=== PATIENT | female | born 1950 | race Caucasian/White ===

== ENCOUNTER → 2016-03-15 | Outpatient (REF) | payer MEDICARE ==
[2016-03-15 18:38] LABS: ALBUMIN 4.1 GM/DL (3.2-5.2); ALBUMIN/GLOBULIN RATIO 1.32 (1.00-1.93); ALKALINE PHOSPHATASE 102 U/L (45-117); ALT/SGPT 26 U/L (12-78); ANION GAP 8 MEQ/L (8-16); AST/SGOT 21 U/L (15-37); BILIRUBIN,TOTAL 0.6 MG/DL (0.2-1.0); BLOOD UREA NITROGEN 13 MG/DL (7-18); CALCIUM LEVEL 8.9 MG/DL (8.8-10.2); CARBON DIOXIDE LEVEL 29 MEQ/L (21-32); CHLORIDE LEVEL 105 MEQ/L (98-107); CHOLESTEROL LEVEL 279 MG/DL (<200); CREATININE FOR GFR 0.85 MG/DL (0.55-1.02); GLOMERULAR FILTRATION RATE > 60.0 (>45); GLUCOSE, FASTING 96 MG/DL (80-110); POTASSIUM SERUM 4.7 MEQ/L (3.5-5.1); SODIUM LEVEL 142 MEQ/L (136-145); TOTAL PROTEIN 7.2 GM/DL (6.4-8.2); TRIGLYCERIDES LEVEL 231 MG/DL (<150)
[2016-03-15 18:59] LABS: BASO % 0.6 % (0.0-1.0); EOS # 0.2 K/mm3 (0.0-0.50); EOS % 3.2 % (0.0-3.0); LARGE UNSTAINED CELL # 0.1 K/mm3 (0.0-0.4); LYMPH # 2.1 K/mm3 (1.5-4.5); LYMPH % 35.4 % (24.0-44.0); MEAN CORPUSCULAR HEMOGLOBIN 29.9 pg (27.0-33.0); MEAN CORPUSCULAR HGB CONC 32.1 g/dl (32.0-36.5); MEAN CORPUSCULAR VOLUME 93.3 fl (80.0-96.0); MONO # 0.3 K/mm3 (0.0-0.8); MONO % 5.9 % (0.0-5.0); NEUTROPHILS # 3.1 K/mm3 (1.8-7.7); PLATELET COUNT, AUTOMATED 294 k/mm3 (150-450); RED CELL DISTRIBUTION WIDTH 13.6 % (11.5-14.5); WHITE BLOOD COUNT 5.8 K/mm3 (4.0-10.0)
== END ==
LOC: M LAB REF 16:16
PROVIDERS: ATTEND Family Medicine
DX: Z00.00 Encounter for general adult medical examination without abnormal findings (principal); I10 Essential (primary) hypertension; M25.569 Pain in unspecified knee

== ENCOUNTER → 2016-04-14 | Outpatient (CLI) | payer MEDICARE ==
[~2016-04-14] MED LIST: AMLO5TAB2 PO; ASPI81TA4 PO; BENA25CA4 PO; BENA40TA2 PO; COUM1TAB17 PO; DICL100T PO; FISH5CAP PO; IBUP-1114 PO; METO25TA74 PO
[2016-04-14 13:13] LABS: ALBUMIN/GLOBULIN RATIO 1.18 (1.00-1.93); ALKALINE PHOSPHATASE 115 U/L (45-117); ALT/SGPT 30 U/L (12-78); ANION GAP 9 MEQ/L (8-16); AST/SGOT 22 U/L (15-37); BILIRUBIN,TOTAL 0.4 MG/DL (0.2-1.0); BLOOD UREA NITROGEN 13 MG/DL (7-18); CALCIUM LEVEL 9.2 MG/DL (8.8-10.2); CARBON DIOXIDE LEVEL 26 MEQ/L (21-32); CHLORIDE LEVEL 104 MEQ/L (98-107); CREATININE FOR GFR 0.78 MG/DL (0.55-1.02); GLOMERULAR FILTRATION RATE > 60.0 (>45); GLUCOSE, FASTING 96 MG/DL (80-110); POTASSIUM SERUM 4.1 MEQ/L (3.5-5.1); SODIUM LEVEL 139 MEQ/L (136-145); TOTAL PROTEIN 7.4 GM/DL (6.4-8.2)
[2016-04-14 13:14] LABS: MEAN CORPUSCULAR HGB CONC 33.9 g/dl (32.0-36.5); MEAN CORPUSCULAR VOLUME 91.5 fl (80.0-96.0); RED CELL DISTRIBUTION WIDTH 13.5 % (11.5-14.5); WHITE BLOOD COUNT 6.4 K/mm3 (4.0-10.0)
== END ==
LOC: M ADMPAT 09:51
PROVIDERS: ATTEND Orthopaedic Surgery
DX: Z01.818 Encounter for other preprocedural examination (principal); M13.851 Other specified arthritis, right hip; I10 Essential (primary) hypertension; Z79.899 Other long term (current) drug therapy

== ENCOUNTER 2016-04-26 09:36 | Inpatient (IN) | payer MEDICARE ==
[2016-04-14 11:27] VITALS: BP 145/90
--- NOTE | 2016-04-23 14:05 | HPE ---
DATE OF ADMISSION: 04/26/2016 ATTENDING PHYSICIAN: Flash Cortez MD CHIEF COMPLAINT: Left hip pain. HISTORY: This is a pleasant 66-year-old female patient with progressively worsening right hip pain and stiffness. She has failed to improve with conservative management. She has pain with activities of daily living and weightbearing activities. She has elected for surgery for her continued symptoms. She has consented for a right total hip arthroplasty by Dr. Cortez. X-rays of her left hip are notable for advanced degenerative changes of the left hip with [id number] in the left hip. ALLERGIES: 1. CODEINE. 2. DILAUDID. CURRENT MEDICATIONS: Include: - benazepril 40 mg one tablet once per day - metoprolol 25 mg one tablet once per day - amlodipine/valsartan 5/160 mg one tablet once per day - tramadol as needed for pain - diclofenac 75 mg one tablet once per day - she will discontinue that five days prior to her surgery. She will also discontinue her aspirin five days prior to surgery. MEDICAL HISTORY: Includes: Hypertension. Osteoarthritis of the left hip. PRIOR SURGERIES: Include: Total hip arthroplasty on the right. Tonsils and adenoids removed. Total hysterectomy. Open reduction internal fixation of a right forearm fracture. FAMILY HISTORY: Noncontributory. SOCIAL HISTORY: She does not smoke. She does not use alcohol. She is retired. REVIEW OF SYSTEMS: Denies fever or chills. Denies chest pain, shortness breath or cough. Denies difficulty breathing. Denies abdominal pain. Denies nausea or vomiting. Has persistent pain in her left hip with weightbearing activities and activities of daily living. Denies nausea or vomiting. PHYSICAL EXAM: Physical exam today reveals an alert, well-nourished, well-developed obese female patient. She is brought in in a wheelchair. There is irritability on hip range of motion on the left side. The skin is intact. No erythema, edema or ecchymosis. It is a well perfused left lower extremity. Her neck is supple without adenopathy or JVD. Lungs are clear to auscultation without rales or wheeze. Heart regular rate and rhythm. Abdomen bowel sounds are present. Vital signs: Temperature is 98.4, respirations 20, pulse 76, blood pressure 122/70, height 5 feet 5 inches. Weight 243 pounds. IMPRESSION: Symptomatic osteoarthritis of the left hip. LABORATORY DATA: Glucose 96, BUN 13, creatinine 0.78, sodium 139, potassium 4.1, INR 1.0, ProTime 13.3, sed rate of 17. WBC count of 6.4, RBC count of 4.4, hemoglobin 13.9, hematocrit 40.9. Nasal cultures positive for Moraxella Catarrhalis. She was treated per the protocol. UA within normal limits. Urine culture no growth. PLAN: She has consented for a left total hip arthroplasty by Dr. Cortez.
[~2016-04-26] VITALS: Ht 165.1 cm; Wt 110.0 kg
[~2016-04-26 09:36] MED LIST changes: -COUM1TAB17 PO
[2016-04-26] MEDS ORDERED: LR 1,000 ML IV SCH ×3 (10:00→14:30)
[2016-04-26] MEDS ORDERED: PROPOFOL 200 MG/20 ML VIAL As Ordered ONE ×2 (10:27→12:54)
[2016-04-26] MEDS ORDERED: MIDAZOLAM INJ 2 MG/2 ML VIAL (J2250) As Ordered ONE (10:28)
[2016-04-26] MEDS ORDERED: fentaNYL 100 MCG/2 ML INJECTION (J3010) As Ordered ONE ×3 (10:28→14:15)
[2016-04-26] MEDS ORDERED: COUM1TAB17 PO (10:45)
[2016-04-26] MEDS ORDERED: ceFAZolin 1GM INJ (J0690) As Ordered ONE (11:42)
[2016-04-26] MEDS ORDERED: BUPIVACAINE HCL 0.25% 30 ML VIAL As Ordered ONE ×2 (11:42→11:44)
[2016-04-26] MEDS ORDERED: TRANEXAMIC ACID 100 MG/ML 10ML VIAL As Ordered ONE (11:43)
[2016-04-26] MEDS ORDERED: EPINEPHrine INJ 1 MG/ML 1ML VIAL/AMP As Ordered ONE (11:44)
[2016-04-26] MEDS ORDERED: MORPHINE PCA 1MG/ML 100ML CADD As Ordered ONE (14:15)
[2016-04-26] MEDS: fentaNYL 100 MCG/2 ML INJECTION (J3010) IV PRN ×4 (14:18→14:35)
[2016-04-26] MEDS ORDERED: FLEET ENEMA PR PRN (14:30)
[2016-04-26] MEDS ORDERED: ACETAMINOPHEN TAB 650MG DOSE (2X325MG) PO PRN (14:30)
[2016-04-26] MEDS ORDERED: ONDANSETRON 4MG/2ML VIAL (J2405) IV PRN ×2 (14:30→14:45)
[2016-04-26] MEDS ORDERED: METOCLOPRAMIDE INJ 10MG/2ML VIAL (J2765) IV PRN (14:30)
[2016-04-26] MEDS ORDERED: PATIENT IS CURRENTLY ON AN ON-Q PAIN BUSTER PAIN RELIEF SYSTEM XX SCH (14:30)
[2016-04-26] MEDS ORDERED: NALBUPHINE HCL 10 MG/ML AMP (J2300) IV PRN (14:45)
[2016-04-26] MEDS ORDERED: EPIDURAL/PCA KEYS XX PRN (14:45)
[2016-04-26] MEDS ORDERED: MORPHINE PCA 1MG/ML 100ML CADD IV PRN (14:45)
[2016-04-26] MEDS ORDERED: NALOXONE INJ 0.4 MG/1 ML VIAL (J2310) IV PRN (14:45)
[2016-04-26] MEDS ORDERED: diphenhydrAMINE INJ 50MG/ML VIAL (J1200) IV PRN (14:45)
[2016-04-26] MEDS: PERCOCET 5MG/325MG TAB PO PRN ×2 (15:07→15:28)
--- NOTE | 2016-04-26 16:07 | CR.PDOC ---
[facility] Consultation Consultation HOSPITALIST CONSULT NOTE Date of consult: 04/26/2016 Referring Provider: Dr. Cortez Reason for Consult: Management of hypertension HPI: 66-year-old female with hypertension and osteoarthritis who underwent a left total hip arthroscopy today with Dr. Cortez. There are reportedly no complications. We were asked to manage the patient's hypertension. The patient currently is reporting only pain in her hip. She otherwise feels well, and denies any chest pain, shortness of breath, vomiting. Past medical history: Hypertension and osteoarthritis Past surgical history: Bilateral total hip arthroplasties, tonsillectomy and adenoidectomy, total hysterectomy, ORIF of the right forearm Family history: TIAs and Parkinson's Social history: She denies any tobacco or alcohol use Allergies: Codeine and Dilaudid Review of systems: General: Negative for fever and chills Eyes: Negative for vision changes and ocular discharge ENT: Negative for sore throat and nose bleed Cardiovascular: Negative for chest pain and palpitations Respiratory:. Negative for Cough and shortness of breath GI: Negative for nausea, vomiting, diarrhea, constipation Musculoskeletal: Positive for hip pain Skin: Positive for eczema that comes and goes Neuro: Negative for headache, dizziness, numbness, tingling Psych: Negative for depression and suicidal ideation Endocrine: Negative for polyuria : Negative For dysuria Heme: Negative for bruising and bleeding Home meds: See below Physical exam: Vital signs: Vital Sign - Last 24 Hours 04/26/16 04/26/16 04/26/16 04/26/16 10:30 14:05 14:18 14:20 Temp 99.1 96.6 Pulse 83 79 68 Resp 20 16 17 18 B/P 144/82 101/71 136/75 Pulse Ox 96 98 98 96 O2 Delivery Room Air Room Air 04/26/16 04/26/16 04/26/16 04/26/16 14:24 14:29 14:35 14:35 Temp 98.2 Pulse 69 Resp 20 21 20 19 B/P 129/77 Pulse Ox 96 98 95 95 O2 Delivery Room Air Room Air Room Air Room Air 04/26/16 04/26/16 04/26/16 04/26/16 14:50 15:05 15:20 15:35 Temp 98.2 98.5 Pulse 70 73 71 66 Resp 20 21 18 17 B/P 126/75 140/89 115/64 112/66 Pulse Ox 96 97 98 96 O2 Delivery Room Air Room Air Room Air Room Air Gen.: awake, alert, no acute distress Eyes: Extraocular movements intact, normal sclera ENT: Moist mucous membranes, very hard of hearing Cardiovascular: RRR, no murmurs rubs or gallops Lungs: clear to auscultation bilaterally, no rales, rhonchi, or wheeze Abdomen: Soft, NT/ND, normal BS Extremities: Pedal pulses intact Neuro: alert and oriented 3, normal speech, no focal deficits Psych: Normal mood with congruent affect Labs and radiology: None to review Assessment and plan: 66-year-old female with hypertension and osteoarthritis who underwent left total hip arthroplasty today. Dr. Cortez has asked us to see the patient in consultation for management of her hypertension. 1. Hypertension: We will continue the patient's home Norvasc, ARSALAN inhibitor, and metoprolol starting tomorrow morning. The patient's blood pressure is currently well-controlled postoperatively. DVT prophylaxis: As per the primary team Thank you for this consult. Dr. Jeffries will continue to follow along with you. Vital Signs/I&O Vital Signs Date Time Temp Pulse Resp B/P Pulse Ox O2 Delivery O2 Flow Rate FiO2 04/26/16 15:35 98.5 66 17 112/66 96 Room Air Allergies Coded Allergies: Hydromorphone (Unverified Allergy, Severe, hypotension, 04/14/16) Rofecoxib (Unverified Allergy, Intermediate, elevated BUN, 04/14/16) Codeine (Unverified Adverse Reaction, Intermediate, NAUSEA, 04/26/16) Home Medications Scheduled (Aspirin EC Low Dose) 81 Mg Tab 81 MG PO DAILY (Reported) (Fish Oil 1200 mg) 1 Cap Cap 2 CAP PO DAILY (Reported) Amlodipine Besylate (Amlodipine Besylate) 5 Mg Tab 5 MG PO DAILY (Reported) Benazepril HCl (Benazepril HCl) 40 Mg Tab 40 MG PO DAILY (Reported) Diclofenac Sodium (Diclofenac Sodium ER) 100 Mg Tab 75 MG PO BID (Reported) Metoprolol Succinate (Metoprolol Succinate ER) 25 Mg Tab 25 MG PO DAILY ( Reported) Warfarin Sod (Coumadin) 5 Mg Tab 5 MG PO 1T (Reported) Scheduled PRN Diphenhydramine HCl (Benadryl Allergy) 25 Mg Cap 50 MG PO QHSP PRN PRN SLEEP ( Reported) Ibuprofen (Ibuprofen) 400 Mg Tab 800 MG PO PRN PRN PRN PAIN (Reported) CHIKIS BILLINGS Apr 26, 2016 16:07
[2016-04-26] MEDS ORDERED: MORPHINE 10 MG/ML 1ML VIAL As Ordered ONE (16:15)
[2016-04-26] MEDS: MORPHINE 2 MG/ML 1ML SYRINGE IV PRN ×2 (16:17→16:28)
[2016-04-26] MEDS ORDERED: LR 500 ML IV ONE (16:30)
[2016-04-26] MEDS ORDERED: WARFARIN SOD 5 MG TAB PO ONE (17:00)
[2016-04-26 17:30] VITALS: BP 136/81
[2016-04-26] MEDS: ONDANSETRON 4MG/2ML VIAL (J2405) IV PRN (17:40)
[2016-04-26 18:00] VITALS: BP 130/61
[2016-04-26] MEDS: LR 1,000 ML IV SCH (18:45)
[2016-04-26 19:00] VITALS: BP 132/68
[2016-04-26 20:00] VITALS: BP 141/75
[2016-04-26 21:00] VITALS: BP 136/85
--- NOTE | 2016-04-26 21:32 | IPN ---
DATE: 04/26/2016 Patient seen and examined, and she wishes to go ahead with a total hip arthroplasty. She understands the nature of this, the risks of bleeding, infection, damage to nerves, vessels, persistent pain, wear loosening, dislocation, leg length inequality, blood clots, medical problems, among others. She understands that due to the fact that she is morbidly obese with a body mass index (BMI) of greater than 40 that she is at increased risk of complications and the risk can be substantially increased. Preoperative clearance was obtained.
[2016-04-26 22:00] VITALS: BP 140/76
[2016-04-27 02:00] VITALS: BP 144/80
[2016-04-27] MEDS: LR 1,000 ML IV SCH (03:50)
[2016-04-27 06:00] VITALS: BP 133/66
[2016-04-27] MEDS ORDERED: PERCOCET 5MG/325MG TAB PO PRN (06:30)
[2016-04-27] MEDS ORDERED: ONDANSETRON 4 MG TAB (S0181) PO PRN (06:30)
[2016-04-27 07:08] LABS: MEAN CORPUSCULAR HEMOGLOBIN 31.1 pg (27.0-33.0); MEAN CORPUSCULAR HGB CONC 33.9 g/dl (32.0-36.5); MEAN CORPUSCULAR VOLUME 91.9 fl (80.0-96.0); RED CELL DISTRIBUTION WIDTH 13.5 % (11.5-14.5)
[2016-04-27 07:13] LABS: INR 1.14
[2016-04-27] MEDS: ONDANSETRON 4MG/2ML VIAL (J2405) IV PRN (08:47)
[2016-04-27 10:00] VITALS: BP 173/79
[2016-04-27] MEDS: MIRALAX *UNIT DOSE* 17GM PACKET PO SCH (10:20)
[2016-04-27] MEDS: MOM 30ML SUSPENSION UDC PO SCH (10:20)
[2016-04-27] MEDS: SENOKOT S TAB PO SCH ×2 (10:22→20:32)
--- NOTE | 2016-04-27 10:22 | RO ---
DATE OF PROCEDURE: 04/26/2016 PREOPERATIVE DIAGNOSIS: Left hip osteoarthritis, advanced. POSTPROCEDURE DIAGNOSIS: Left hip osteoarthritis, advanced. PROCEDURE: Left total hip arthroplasty using a Ware size 6 stem regular offset, 36 ball, 54 acetabulum, +5 neck. SURGEON: Flash Cortez MD TRESTLE BUILDER: JOSE ANTONIO Cunningham ANESTHESIA: Spinal. ESTIMATED BLOOD LOSS: 400 COMPLICATIONS: None. INDICATION: 66-year-old woman with obesity who has had persistent worsening left hip pain. Has advanced arthritis on x-ray and wished to have a surgical treatment, having failed conservative management that she wished to try. She understood the nature of this, the risks of bleeding, infection, damage to nerves, vessels, persistent pain, wear, loosening, dislocation, leg length inequality, blood clots, medical problems, among others and understood that her risk was higher due to her elevated weight. DESCRIPTION OF PROCEDURE: The patient taken to the operating room and placed in the right lateral decubitus position. After spinal anesthesia was induced, the left hip was prepped and draped in the usual sterile fashion. A time-out was performed. I then created a longitudinal incision over the lateral aspect of the hip and did a little bit more extensile due to her weight and dissected down through significant adipose tissue until the fascia was encountered. This was incised longitudinally with the cautery. I controlled hemostasis with the cautery, but she did seem to be oozing from several areas, which I was able to adequately control with the cautery. I then dissected about the anterior 40% of the abductor off the anterior aspect of the hip and split the labrum and gradually externally rotated the femur and exposed the hip, which was relatively difficult due to her weight. The hip was then dislocated. She has significant arthritis with flattening of the femoral head. We then proceeded to use a canal initiating reamer followed by the intramedullary reamer, followed by the lateralizing reamer and then sequentially reamed up to a size 6, which seemed to have a good bony purchase. The neck was then cut about a fingerbreadth up from the lesser trochanter and the femoral head removed. I then prepared the acetabulum, anterior posterior retractors were placed. I then removed the soft tissue from around the acetabulum and then sequentially reamed up to a size 53, which had good concentric reaming and good bleeding bone. I selected a 54 acetabular component, impacted it in place in the appropriate amount of anteversion and horizontal tilt. Excellent fit was noted. I did hae to remove some osteophytes from the anterior aspect with a rongeur and osteotome. I had irrigated multiple times prior to this. I again irrigated now and then put in a 36 x 54 liner, impacted it in place. I had also put the apex hole eliminator in. We then directed our attention back to the femur. I sequentially broached up to a size 6, which had an excellent fit and fill, placed a 1.5 followed by the five neck and 36 ball combination and did trial reductions. The hip was put through range of motion and seemed to have excellent stability. There was a little bit more shuck with a 1.5 than I was happy with. Soft tissue tension was appropriate with 5 and the flexion and internal rotation was limited only by her pannus. Extension and external rotation was stable as well. There was no instability noted. No impingement noted. I then removed the trial components and put the actual size 6 stem down, impacted it in place. Excellent fit was noted. I dried the An taper and put the +5 36 ball on and impacted this in place and then we reduced the hip. I again put it through range of motion and was very pleased with the stability and position. I irrigated again as I had multiple times and placed the TXA solution. I then repaired the minimus with #1 Vicryl suture, the abductor with #1 Vicryl suture in interrupted fashion. An excellent repair was noted. I irrigated at each level and then closed the fascia kunal with #1 Vicryl suture as a tagging suture in the middle and then used the running Stratafix suture in each direction with the events and promotions assistant helping. I then closed the subcutaneous after irrigation, the skin with abril, inserted the PainBuster catheter in the anterior aspect just anterior to the incision down to the femoral neck and inserted the catheter and secured it to the skin. Sterile dressing was applied. She was taken to recovery room in stable condition. The PainBuster catheter was utilized in the usual fashion. The events and promotions assistant was instrumental in holding retractors and assisting in reducing and dislocating the hip and in closure. This was coded as an unusually difficult procedure because her BMI was created and 40 and this made it technically more challenging to expose and visualize and get the components in appropriately and with wound closure etc. The plan will be routine postop
[2016-04-27] MEDS: METOPROLOL SUCC *XL* 25MG TAB (TopROL *XL*) PO SCH (10:26)
[2016-04-27] MEDS: BENAZEPRIL 20 MG TAB PO SCH (10:26)
[2016-04-27] MEDS: amLODIPine 5 MG TAB PO SCH (10:28)
--- NOTE | 2016-04-27 11:04 | REP ---
LEFT HIP SERIES TWO VIEWS: 04/27/2016. No prior study. Clinical history: Left total hip arthroplasty. AP and two cross-table lateral views were provided. There are skin abril overlying the lateral aspect of the hip soft tissues. There is a left total hip arthroplasty with the two components well-aligned in relationship to each other and the [place] bone. There are no focal bone lesions. There is some minor degenerative changes at the inferior aspect the left SI joint. Impression: 1. Status post left total hip arthroplasty. Prosthetic components well-aligned in relationship to each other and the [place] bone. Signed by Noel Da Silva MD 04/27/2016 05:13 P
--- NOTE | 2016-04-27 13:17 | IPNPDOC ---
Date Seen The patient was seen on 04/27/16. Progress Note Hospitalist Progress Note Subjective: The patient states that she feels nauseated Objective: Physical Exam: Vitals: Vital Sign - Last 24 Hours 04/26/16 04/26/16 04/26/16 04/26/16 14:05 14:18 14:20 14:24 Temp 96.6 Pulse 79 68 Resp 16 17 18 20 B/P 101/71 136/75 Pulse Ox 98 98 96 96 O2 Delivery Room Air Room Air Room Air 04/26/16 04/26/16 04/26/16 04/26/16 14:29 14:35 14:35 14:50 Temp 98.2 Pulse 69 70 Resp 21 20 19 20 B/P 129/77 126/75 Pulse Ox 98 95 95 96 O2 Delivery Room Air Room Air Room Air Room Air 04/26/16 04/26/16 04/26/16 04/26/16 15:05 15:07 15:20 15:28 Temp 98.2 Pulse 73 71 Resp 21 17 18 18 B/P 140/89 115/64 Pulse Ox 97 97 98 95 O2 Delivery Room Air Room Air Room Air Room Air 04/26/16 04/26/16 04/26/16 04/26/16 15:35 15:50 16:05 16:17 Temp 98.5 97.5 Pulse 66 64 64 Resp 17 16 17 16 B/P 112/66 100/57 104/61 Pulse Ox 96 96 95 96 O2 Delivery Room Air Room Air Room Air Room Air 04/26/16 04/26/16 04/26/16 04/26/16 16:20 16:28 16:35 16:50 Temp 98.1 Pulse 62 64 62 Resp 16 16 16 16 B/P 113/58 119/58 124/66 Pulse Ox 95 95 92 98 O2 Delivery Room Air Nasal Cannula Room Air Nasal Cannula O2 Flow Rate 2.0 2 04/26/16 04/26/16 04/26/16 04/26/16 17:30 18:00 18:47 19:00 Temp 96.2 96.4 96.4 Pulse 61 62 64 Resp 16 16 12 16 B/P 136/81 130/61 132/68 Pulse Ox 98 98 99 O2 Delivery Nasal Cannula Nasal Cannula Nasal Cannula Nasal Cannula O2 Flow Rate 2.0 3/13/17 04/26/16 04/26/16 04/27/16 20:00 21:00 22:00 02:00 Temp 96.4 96.4 96.1 96.7 Pulse 67 63 62 64 Resp 17 15 17 14 B/P 141/75 136/85 140/76 144/80 Pulse Ox 99 100 99 100 O2 Delivery Nasal Cannula Nasal Cannula Nasal Cannula Nasal Cannula O2 Flow Rate 2.0 2.0 2.0 2.0 04/27/16 04/27/16 04/27/16 04/27/16 06:00 10:00 10:21 10:26 Temp 97.0 99.5 Pulse 71 76 Resp 18 14 12 B/P 133/66 173/79 173/79 Pulse Ox 98 95 O2 Delivery Nasal Cannula Room Air Room Air O2 Flow Rate 2.0 04/27/16 04/27/16 04/27/16 04/27/16 10:26 10:28 10:51 11:11 Pulse 71 Resp 12 12 B/P 173/79 173/79 O2 Delivery Room Air Room Air General: Alert, awake, no acute distress HEENT: Moist Mucous membranes, very hard of hearing Cardiovascular: RRR, no murmurs rubs or gallops Lungs: clear to auscultation bilaterally, no rales, rhonchi, or wheeze Abdomen: Soft, NT/ND, normal BS Extremities: Pedal pulses intact Neuro: alert and oriented 3, normal speech, no focal deficits Psych: Normal mood with congruent affect Labs and Imaging: Laboratory Tests 04/27/16 06:15 Red Blood Count 3.36 L, Mean Corpuscular Volume 91.9, Mean Corpuscular Hemoglobin 31.1, Mean Corpuscular Hemoglobin Concent 33.9, Red Cell Distribution Width 13.5 Assessment and Plan: 66-year-old female with hypertension and osteoarthritis who underwent left total hip arthroplasty. Dr. Cortez has asked us to see the patient in consultation for management of her hypertension. 1. Hypertension: The patient's home Norvasc, ARSALAN inhibitor, and metoprolol have been restarted this morning. BP was well controlled overnight; continue to monitor. DVT prophylaxis: As per the primary team VS, I&O, Joan, Davdi Vital Signs/I&O Vital Signs Date Time Temp Pulse Resp B/P Pulse Ox O2 Delivery O2 Flow Rate FiO2 04/27/16 11:11 12 Room Air 04/27/16 10:28 71 173/79 04/27/16 10:00 99.5 95 04/27/16 06:00 2.0 I&O- Last 24 Hours up to 6 AM 04/27/16 05:59 Intake Total 1255 ml Output Total 1125 ml Balance 130 ml Laboratory Data 24H LABS Laboratory Tests 2 04/27/16 06:15: Prothromb Time International Ratio 1.14, Prothrombin Time 14.7H CBC/BMP Laboratory Tests 04/27/16 06:15 Red Blood Count 3.36 L, Mean Corpuscular Volume 91.9, Mean Corpuscular Hemoglobin 31.1, Mean Corpuscular Hemoglobin Concent 33.9, Red Cell Distribution Width 13.5 CHIKIS IBLLINGS Apr 27, 2016 13:17
[2016-04-27 14:00] VITALS: BP 111/53
[2016-04-27] MEDS: PERCOCET 5MG/325MG TAB PO PRN ×2 (14:09→18:46)
[2016-04-27] MEDS ORDERED: WARFARIN SOD 5 MG TAB PO ONE (17:00)
[2016-04-27 20:00] VITALS: BP 162/70
[2016-04-28] MEDS: PERCOCET 5MG/325MG TAB PO PRN ×2 (01:24→05:08)
[2016-04-28 06:00] VITALS: BP 118/65
[2016-04-28 06:56] LABS: BASO % 0.2 % (0.0-1.0); EOS # 0.1 K/mm3 (0.0-0.50); EOS % 0.8 % (0.0-3.0); LARGE UNSTAINED CELL # 0.1 K/mm3 (0.0-0.4); LARGE UNSTAINED CELL % 1.3 % (0.0-4.0); LYMPH # 1.2 K/mm3 (1.5-4.5); LYMPH % 13.5 % (24.0-44.0); MEAN CORPUSCULAR HEMOGLOBIN 30.3 pg (27.0-33.0); MEAN CORPUSCULAR HGB CONC 33.4 g/dl (32.0-36.5); MEAN CORPUSCULAR VOLUME 90.7 fl (80.0-96.0); MONO # 0.5 K/mm3 (0.0-0.8); MONO % 6.1 % (0.0-5.0); NEUTROPHILS # 6.7 K/mm3 (1.8-7.7); NEUTROPHILS % 78.1 % (36.0-66.0); PLATELET COUNT, AUTOMATED 171 k/mm3 (150-450); RED CELL DISTRIBUTION WIDTH 13.1 % (11.5-14.5); WHITE BLOOD COUNT 8.5 K/mm3 (4.0-10.0)
[2016-04-28 07:06] LABS: ANION GAP 7 MEQ/L (8-16); BLOOD UREA NITROGEN 14 MG/DL (7-18); CALCIUM LEVEL 8.3 MG/DL (8.8-10.2); CARBON DIOXIDE LEVEL 30 MEQ/L (21-32); CHLORIDE LEVEL 101 MEQ/L (98-107); CREATININE FOR GFR 0.73 MG/DL (0.55-1.02); GLOMERULAR FILTRATION RATE > 60.0 (>45); GLUCOSE, FASTING 120 MG/DL (80-110); MAGNESIUM LEVEL 2.2 MG/DL (1.8-2.4); POTASSIUM SERUM 3.4 MEQ/L (3.5-5.1); SODIUM LEVEL 138 MEQ/L (136-145)
[2016-04-28 07:08] LABS: INR 1.84
[2016-04-28] MEDS: MOM 30ML SUSPENSION UDC PO SCH (08:25)
--- NOTE | 2016-04-28 08:25 | IPN ---
DATE: 04/28/2016 66-year-old female seen at bedside. She did well through the night last night. States she has not had a bowel movement since her admission, but she is passing flatus. She denies any nausea or vomiting. No chest pain and tolerating her meals. OBJECTIVE: Temperature is 98.9, pulse 68, respiratory rate 16, blood pressure 118/65, SpO2 97% on room air. GENERAL: The patient appears to be in no acute distress. She is alert and oriented, pleasant to talk to. HEENT: Unremarkable. LUNGS: Clear. HEART: Regular rate and rhythm. ABDOMEN: Soft. EXTREMITIES: No edema. No calf tenderness. Sensation is intact. Pulses intact. LABORATORIES: White count 8.5, hemoglobin 9.5, platelets 171,000. Sodium 138, potassium 3.4, which we will supplement, chloride 101, bicarb 30, anion gap 7, BUN 14, creatinine 0.73, glucose 120, magnesium 2.2, INR is 1.84. ASSESSMENT/PLAN: 1. Status post left total hip arthroplasty postop day #2. She is doing well. Pain control, anticoagulation, and physical therapy is being managed by orthopedics. 2. Hypertension stable. Continue with Norvasc, ARSALAN inhibitor, metoprolol with hold parameters. 3. Hypokalemia. Will replete. 4. Deep vein thrombosis (DVT) prophylaxis. She did have a slight drop in her hemoglobin today. This most likely is hemodilution. Will continue to follow daily hemoglobin and hematocrit. She does not show any signs of bleeding or bruising issues at this time. I will repeat the morning.
[2016-04-28] MEDS: traMADol 50 MG TAB PO PRN ×3 (08:26→17:06)
[2016-04-28] MEDS: SENOKOT S TAB PO SCH ×2 (08:27→20:03)
[2016-04-28] MEDS: METOPROLOL SUCC *XL* 25MG TAB (TopROL *XL*) PO SCH (08:27)
[2016-04-28] MEDS: amLODIPine 5 MG TAB PO SCH (08:27)
[2016-04-28] MEDS: MIRALAX *UNIT DOSE* 17GM PACKET PO SCH (08:27)
[2016-04-28] MEDS: BENAZEPRIL 20 MG TAB PO SCH (08:27)
[2016-04-28] MEDS ORDERED: POTASSIUM CHLORIDE 10 MEQ SR TABLET PO ONE (08:30)
[2016-04-28] MEDS: oxyCODONE 10 MG CR TAB PO SCH ×2 (10:25→20:03)
[2016-04-28 14:00] VITALS: BP 132/58
[2016-04-28] MEDS ORDERED: WARFARIN SOD 4 MG TAB PO ONE (17:00)
[2016-04-28 22:00] VITALS: BP 127/60
[2016-04-29] MEDS: traMADol 50 MG TAB PO PRN ×3 (02:04→18:28)
[2016-04-29 06:00] VITALS: BP 132/63
[2016-04-29 06:50] LABS: BASO % 0.2 % (0.0-1.0); EOS # 0.1 K/mm3 (0.0-0.50); EOS % 1.8 % (0.0-3.0); LARGE UNSTAINED CELL # 0.1 K/mm3 (0.0-0.4); LARGE UNSTAINED CELL % 1.7 % (0.0-4.0); LYMPH # 1.3 K/mm3 (1.5-4.5); LYMPH % 18.7 % (24.0-44.0); MEAN CORPUSCULAR HGB CONC 33.1 g/dl (32.0-36.5); MEAN CORPUSCULAR VOLUME 90.7 fl (80.0-96.0); MONO # 0.5 K/mm3 (0.0-0.8); MONO % 7.1 % (0.0-5.0); NEUTROPHILS # 4.9 K/mm3 (1.8-7.7); NEUTROPHILS % 70.4 % (36.0-66.0); PLATELET COUNT, AUTOMATED 166 k/mm3 (150-450); RED CELL DISTRIBUTION WIDTH 13.3 % (11.5-14.5)
[2016-04-29 06:56] LABS: ANION GAP 9 MEQ/L (8-16); BLOOD UREA NITROGEN 16 MG/DL (7-18); CALCIUM LEVEL 7.9 MG/DL (8.8-10.2); CARBON DIOXIDE LEVEL 28 MEQ/L (21-32); CHLORIDE LEVEL 101 MEQ/L (98-107); CREATININE FOR GFR 0.68 MG/DL (0.55-1.02); GLOMERULAR FILTRATION RATE > 60.0 (>45); GLUCOSE, FASTING 103 MG/DL (80-110); MAGNESIUM LEVEL 2.4 MG/DL (1.8-2.4); POTASSIUM SERUM 4.4 MEQ/L (3.5-5.1); SODIUM LEVEL 138 MEQ/L (136-145)
[2016-04-29 07:00] LABS: INR 1.54
[2016-04-29 08:30] LABS: RETIC HEMOGLOBIN CONTENT CHr 30.5 PG (24-36); RETICULOCYTE ABSOLUTE ADVIA212 71 x10(9)/L (17-77)
[2016-04-29] MEDS: BENAZEPRIL 20 MG TAB PO SCH (08:40)
[2016-04-29] MEDS: oxyCODONE 10 MG CR TAB PO SCH ×2 (08:41→20:40)
[2016-04-29] MEDS: amLODIPine 5 MG TAB PO SCH (08:41)
[2016-04-29] MEDS: METOPROLOL SUCC *XL* 25MG TAB (TopROL *XL*) PO SCH (08:41)
[2016-04-29] MEDS: SENOKOT S TAB PO SCH ×2 (08:41→20:36)
[2016-04-29] MEDS: MOM 30ML SUSPENSION UDC PO SCH (08:43)
[2016-04-29] MEDS: MIRALAX *UNIT DOSE* 17GM PACKET PO SCH (08:43)
[2016-04-29 14:00] VITALS: BP 104/61
--- NOTE | 2016-04-29 14:47 | IPN ---
DATE: 04/29/2016 A 66-year-old female seen at bedside, resting comfortably. She denies any complaints. She did participate with physical therapy yesterday. She was able to walk to the bathroom but feels that she needs another day before home discharge. I did address this with orthopedics who will most likely discharge her tomorrow. No chest pain or shortness of breath. No nausea or vomiting. No abdominal pain. She is passing flatus and voiding fine. OBJECTIVE: VITAL SIGNS: Temperature is 98.7, pulse 79 and regular, respiratory rate 20 and nonlabored, blood pressure 132/63, SPO2 94% on room air. GENERAL: The patient appears to be in no acute distress. She is alert and oriented. HEENT: Unremarkable. LUNGS: Clear. HEART: Regular rate and rhythm. ABDOMEN: Soft. EXTREMITIES: No edema. No calf tenderness. LABORATORY DATA: White count 7.0, hemoglobin is 8.7 down from 9.5 and 10.5 on admission, platelets 166,000. Sodium is 138, potassium 4.4, chloride 101, bicarbonate 28, anion gap 9, BUN 16, creatinine 0.68, glucose 103, magnesium 2.4. ASSESSMENT/PLAN: 1. Status post left total hip arthroplasty, postoperative day number three. Pain control, anticoagulation, and physical therapy are being managed by orthopedics. 2. Acute anemia, most likely is acute on chronic. It appears to be normochromic in nature. We will go ahead and check a reticulocyte count and stool for occult blood. She otherwise is not orthostatic and has no other symptoms. 3. Hypokalemia, resolved. 4. Hypertension. Continue with Norvasc, angiotensin-converting enzyme (ARSALAN) inhibitor, metoprolol with hold parameters. 5. Deep vein thrombosis (DVT) prophylaxis. Again, we will repeat the hemoglobin and hematocrit in the morning, check stool for occult blood and reticulocyte count. DISPOSITION: Anticipate home discharge in the next 24 hours.
[2016-04-29] MEDS ORDERED: WARFARIN SOD 3 MG TAB PO ONE (17:00)
[2016-04-29 22:00] VITALS: BP 108/58
[2016-04-30] MEDS: traMADol 50 MG TAB PO PRN ×3 (05:11→18:03)
[2016-04-30 06:00] VITALS: BP 110/68
[2016-04-30 07:18] LABS: BASO % 0.3 % (0.0-1.0); EOS # 0.3 K/mm3 (0.0-0.50); EOS % 5.2 % (0.0-3.0); LARGE UNSTAINED CELL # 0.1 K/mm3 (0.0-0.4); LARGE UNSTAINED CELL % 1.7 % (0.0-4.0); LYMPH # 0.9 K/mm3 (1.5-4.5); LYMPH % 17.1 % (24.0-44.0); MEAN CORPUSCULAR HEMOGLOBIN 30.6 pg (27.0-33.0); MEAN CORPUSCULAR HGB CONC 33.3 g/dl (32.0-36.5); MEAN CORPUSCULAR VOLUME 91.9 fl (80.0-96.0); MONO # 0.6 K/mm3 (0.0-0.8); MONO % 10.5 % (0.0-5.0); NEUTROPHILS # 3.4 K/mm3 (1.8-7.7); NEUTROPHILS % 65.2 % (36.0-66.0); PLATELET COUNT, AUTOMATED 202 k/mm3 (150-450); RED CELL DISTRIBUTION WIDTH 13.2 % (11.5-14.5); WHITE BLOOD COUNT 5.3 K/mm3 (4.0-10.0)
[2016-04-30 07:20] LABS: INR 1.62
[2016-04-30 07:37] LABS: ANION GAP 9 MEQ/L (8-16); BLOOD UREA NITROGEN 17 MG/DL (7-18); CALCIUM LEVEL 8.5 MG/DL (8.8-10.2); CARBON DIOXIDE LEVEL 28 MEQ/L (21-32); CHLORIDE LEVEL 101 MEQ/L (98-107); CREATININE FOR GFR 0.64 MG/DL (0.55-1.02); GLOMERULAR FILTRATION RATE > 60.0 (>45); GLUCOSE, FASTING 104 MG/DL (80-110); MAGNESIUM LEVEL 2.4 MG/DL (1.8-2.4); POTASSIUM SERUM 4.3 MEQ/L (3.5-5.1); SODIUM LEVEL 138 MEQ/L (136-145)
[2016-04-30] MEDS: SENOKOT S TAB PO SCH ×2 (09:09→21:00)
[2016-04-30] MEDS: MIRALAX *UNIT DOSE* 17GM PACKET PO SCH (09:09)
[2016-04-30] MEDS: MOM 30ML SUSPENSION UDC PO SCH (09:09)
[2016-04-30] MEDS: oxyCODONE 10 MG CR TAB PO SCH ×2 (09:16→20:01)
[2016-04-30] MEDS: BENAZEPRIL 20 MG TAB PO SCH (10:57)
[2016-04-30] MEDS: amLODIPine 5 MG TAB PO SCH (10:57)
[2016-04-30] MEDS: METOPROLOL SUCC *XL* 25MG TAB (TopROL *XL*) PO SCH (10:58)
--- NOTE | 2016-04-30 12:18 | IPN ---
DATE: 04/30/2016 66-year-old female seen at bedside, resting comfortably; however, she has been somewhat symptomatic with some nausea, lightheadedness, but she denies chest pain, palpitations. She has had some loose stool but no blood in her stool. OBJECTIVE: Temperature is 98.3, pulse is 92 and regular, respiratory rate is 16, blood pressure 110/68, SpO2 is 92% on room air. GENERAL: The patient appears to be in no acute distress, alert, oriented. HEENT: Unremarkable. LUNGS: Clear. HEART: Regular rate and rhythm. ABDOMEN: Soft. EXTREMITIES: No edema. No calf tenderness. LABORATORY DATA: White count is 5.3, hemoglobin 8.8, hematocrit 26.5, platelets 202. INR 1.62. Sodium 138, potassium 4.3, chloride 101, bicarbonate 20, anion gap 9, BUN is 17, creatinine 0.64, glucose 104, magnesium 2.4. ASSESSMENT AND PLAN: 1. Status post left total hip arthroplasty postoperative day #4. Pain control, anticoagulation, physical therapy managed by orthopedics. 2. Symptomatic acute on chronic anemia, normochromic in nature. Reticulocyte count is slightly elevated. Stool was negative for occult blood. Again, she is symptomatic so we will give her 1 unit of packed red blood cells and continue to follow her hemoglobin and hematocrit. 3. Hypokalemia, resolved. 4. Hypertension. Continue with Norvasc, ARSALAN inhibitor and metoprolol. All have hold parameters currently. 5. Deep vein thrombosis (DVT) prophylaxis per orthopedics. DISPOSITION: She is doing fairly well with physical therapy. We will give her 1 unit of blood today as outlined above and if she is doing well tomorrow and hemoglobin and hematocrit are stable, she should be medically optimized for discharge.
[2016-04-30 14:00] VITALS: BP 114/69
[2016-04-30] MEDS ORDERED: WARFARIN SOD 7.5 MG TAB PO ONE (17:00)
[2016-04-30 22:00] VITALS: BP 115/53
[2016-05-01] MEDS: traMADol 50 MG TAB PO PRN ×2 (01:48→06:56)
[2016-05-01 06:00] VITALS: BP 151/78
[2016-05-01 07:00] LABS: BASO % 0.4 % (0.0-1.0); EOS # 0.3 K/mm3 (0.0-0.50); EOS % 6.3 % (0.0-3.0); LARGE UNSTAINED CELL # 0.1 K/mm3 (0.0-0.4); LARGE UNSTAINED CELL % 2.2 % (0.0-4.0); LYMPH # 1.5 K/mm3 (1.5-4.5); LYMPH % 27.3 % (24.0-44.0); MEAN CORPUSCULAR HEMOGLOBIN 30.1 pg (27.0-33.0); MEAN CORPUSCULAR HGB CONC 32.7 g/dl (32.0-36.5); MEAN CORPUSCULAR VOLUME 91.8 fl (80.0-96.0); MONO # 0.6 K/mm3 (0.0-0.8); MONO % 11.7 % (0.0-5.0); NEUTROPHILS # 2.7 K/mm3 (1.8-7.7); NEUTROPHILS % 52.1 % (36.0-66.0); PLATELET COUNT, AUTOMATED 249 k/mm3 (150-450); RED CELL DISTRIBUTION WIDTH 13.6 % (11.5-14.5); WHITE BLOOD COUNT 5.2 K/mm3 (4.0-10.0)
[2016-05-01 07:03] LABS: INR 1.87
[2016-05-01 07:09] LABS: ANION GAP 8 MEQ/L (8-16); BLOOD UREA NITROGEN 12 MG/DL (7-18); CALCIUM LEVEL 8.1 MG/DL (8.8-10.2); CARBON DIOXIDE LEVEL 29 MEQ/L (21-32); CHLORIDE LEVEL 102 MEQ/L (98-107); CREATININE FOR GFR 0.62 MG/DL (0.55-1.02); GLOMERULAR FILTRATION RATE > 60.0 (>45); GLUCOSE, FASTING 95 MG/DL (80-110); MAGNESIUM LEVEL 2.3 MG/DL (1.8-2.4); POTASSIUM SERUM 4.1 MEQ/L (3.5-5.1); SODIUM LEVEL 139 MEQ/L (136-145)
[2016-05-01] MEDS ORDERED: COUM2.5T11 PO (07:20)
[2016-05-01] MEDS ORDERED: PERC5TAB6 PO (07:20)
[2016-05-01] MEDS ORDERED: OXYC-299 PO (08:12)
[2016-05-01] MEDS ORDERED: TRAM50TA2 PO (08:12)
[2016-05-01] MEDS: oxyCODONE 10 MG CR TAB PO SCH (08:34)
[2016-05-01 08:35] VITALS: BP 151/78
[2016-05-01] MEDS: MOM 30ML SUSPENSION UDC PO SCH (08:35)
[2016-05-01] MEDS: BENAZEPRIL 20 MG TAB PO SCH (08:35)
[2016-05-01] MEDS: SENOKOT S TAB PO SCH (08:35)
[2016-05-01] MEDS: METOPROLOL SUCC *XL* 25MG TAB (TopROL *XL*) PO SCH (08:35)
[2016-05-01] MEDS: amLODIPine 5 MG TAB PO SCH (08:35)
[2016-05-01] MEDS: MIRALAX *UNIT DOSE* 17GM PACKET PO SCH (08:36)
[2016-05-01] MEDS ORDERED: CelecoXIB (CeleBREX) 100 MG CAP PO ONE (09:00)
[2016-05-01] MEDS ORDERED: MS C15TA2 PO (09:32)
--- NOTE | 2016-05-05 15:17 | DSES ---
DATE OF ADMISSION: 04/26/2016 DATE OF DISCHARGE: 05/01/2016 ADMITTING DIAGNOSIS: Symptomatic osteoarthritis of the left hip. OTHER DIAGNOSIS: Hypertension. DISCHARGE DIAGNOSIS: Osteoarthritis of the left hip status post left total hip arthroplasty. HISTORY OF PRESENT ILLNESS: Patient is a 66-year-old female with continuing left hip pain and stiffness. She has not responded to conservative treatment. She has consented for an elective left total hip arthroplasty by Dr. Cortez. OPERATION PERFORMED: Left total hip arthroplasty. HOSPITAL COURSE: Patient underwent a left total hip arthroplasty under spinal anesthesia. Surgery was uneventful. Patient was up with physical therapy and weightbearing as tolerated on the left lower extremity. She did develop symptomatic acute on chronic normochromic anemia and hypokalemia while inpatient but on date of discharge she was asymptomatic and stable. The patient was discharged on oral pain medications. She will resume her preoperative medications and diet. She will use thromboembolic deterrent stockings for 30 days to prevent deep venous thrombosis in addition to Coumadin. She will followup in our office in approximately 12-14 days for a wound check and staple removal. She is encouraged to contact our office sooner if there is any increased pain, drainage, bleeding, redness, numbness or tingling in her leg, or fever greater than 101 degrees. She will also report or contact our office for any other concerns. Please see medical record for additional details. NOA
== END 2016-05-01 11:30 | disposition home or self-care (01) | DRG 470 ==
LOC: M OR 09:36 → M MS5PR 17:00
PROVIDERS: ADMIT Orthopaedic Surgery; ATTEND Orthopaedic Surgery
PROC: 0SRB04A Replacement of Left Hip Joint with Ceramic on Polyethylene Synthetic Substitute, Uncemented, Open Approach (ICD-10-PCS; principal; 2016-04-26 12:00)
DX: M16.12 Unilateral primary osteoarthritis, left hip (principal); Z68.41 Body mass index [BMI] 40.0-44.9, adult; E66.9 Obesity, unspecified; D64.9 Anemia, unspecified; I10 Essential (primary) hypertension; E87.6 Hypokalemia; Z90.710 Acquired absence of both cervix and uterus; Z96.641 Presence of right artificial hip joint; Z88.5 Allergy status to narcotic agent; Z82.8 Family history of other disabilities and chronic diseases leading to disablement, not elsewhere classified; Z82.0 Family history of epilepsy and other diseases of the nervous system; Z79.82 Long term (current) use of aspirin; Z79.01 Long term (current) use of anticoagulants; Z79.899 Other long term (current) drug therapy

== ENCOUNTER → 2017-03-18 | Outpatient (REF) | payer MEDICARE ==
[2017-03-18 19:04] LABS: BASO # 0.1 10^3/uL (0.0-0.2); EOS # 0.2 10^3/uL (0.0-0.50); EOS % 3.3 % (0.0-3.0); HEMATOCRIT 41.4 % (36.0-47.0); HEMOGLOBIN 13.4 g/dl (12.0-16.0); IMMATURE GRANULOCYTE % 0.2 % (0-0); LYMPH # 1.8 10^3/uL (1.5-4.5); LYMPH % 34.3 % (24.0-44.0); MEAN CORPUSCULAR HEMOGLOBIN 29.8 pg (27.0-33.0); MEAN CORPUSCULAR HGB CONC 32.4 g/dl (32.0-36.5); MEAN CORPUSCULAR VOLUME 92.2 fl (80.0-96.0); MONO # 0.4 10^3/uL (0.0-0.8); MONO % 8.4 % (0.0-5.0); NEUTROPHILS # 2.7 10^3/uL (1.8-7.7); NEUTROPHILS % 52.8 % (36.0-66.0); PLATELET COUNT, AUTOMATED 259 10^3/uL (150-450); RED BLOOD COUNT 4.49 10^6/uL (4.00-5.40); RED CELL DISTRIBUTION WIDTH 14.3 % (11.5-14.5); WHITE BLOOD COUNT 5.1 10^3/uL (4.0-10.0)
[2017-03-18 19:17] LABS: ALBUMIN/GLOBULIN RATIO 1.18 (1.00-1.93); ALKALINE PHOSPHATASE 90 U/L (45-117); ALT/SGPT 22 U/L (12-78); ANION GAP 5 MEQ/L (8-16); AST/SGOT 13 U/L (7-37); BILIRUBIN,TOTAL 0.5 MG/DL (0.2-1.0); BLOOD UREA NITROGEN 12 MG/DL (7-18); CALCIUM LEVEL 8.6 MG/DL (8.8-10.2); CARBON DIOXIDE LEVEL 30 MEQ/L (21-32); CHLORIDE LEVEL 104 MEQ/L (98-107); CHOLESTEROL LEVEL 278 MG/DL (<200); CHOLESTEROL RISK RATIO 6.043 (<5); CREATININE FOR GFR 0.73 MG/DL (0.55-1.30); GLOMERULAR FILTRATION RATE > 60.0 (>45); GLUCOSE, FASTING 92 MG/DL (70-100); HDL CHOLESTEROL 46 MG/DL (>40); LDL CHOLESTEROL 188.6 MG/DL (<100); NON-HDL-C 232 MG/DL; POTASSIUM SERUM 4.3 MEQ/L (3.5-5.1); SODIUM LEVEL 139 MEQ/L (136-145); TOTAL PROTEIN 7.4 GM/DL (6.4-8.2); TRIGLYCERIDES LEVEL 217 MG/DL (<150)
== END ==
LOC: M LAB REF 17:47
DX: E78.4 Other hyperlipidemia (principal); E66.01 Morbid (severe) obesity due to excess calories; Z00.00 Encounter for general adult medical examination without abnormal findings; M12.9 Arthropathy, unspecified
CPT/HCPCS: 84443

== ENCOUNTER → 2017-10-26 | Outpatient (REF) | payer MEDICARE ==
[2017-10-26 19:44] LABS: ALBUMIN/GLOBULIN RATIO 1.33 (1.00-1.93); ALKALINE PHOSPHATASE 80 U/L (45-117); ALT/SGPT 20 U/L (12-78); ANION GAP 8 MEQ/L (8-16); AST/SGOT 14 U/L (7-37); BILIRUBIN,TOTAL 0.7 MG/DL (0.2-1.0); BLOOD UREA NITROGEN 13 MG/DL (7-18); CARBON DIOXIDE LEVEL 26 MEQ/L (21-32); CHLORIDE LEVEL 107 MEQ/L (98-107); CHOLESTEROL LEVEL 242 MG/DL (<200); CHOLESTEROL RISK RATIO 5.902 (<5); CREATININE FOR GFR 0.74 MG/DL (0.55-1.30); FREE THYROXINE INDEX 2.9 % (1.3-4.8); GLOMERULAR FILTRATION RATE > 60.0 (>45); GLUCOSE, FASTING 89 MG/DL (70-100); HDL CHOLESTEROL 41 MG/DL (>40); LDL CHOLESTEROL 158 MG/DL (<100); NON-HDL-C 201 MG/DL; POTASSIUM SERUM 4.2 MEQ/L (3.5-5.1); SODIUM LEVEL 141 MEQ/L (136-145); T UPTAKE 32 % (30-39); THYROXINE (T4) 9.1 UG/DL (4.5-12.0); TRIGLYCERIDES LEVEL 217 MG/DL (<150)
== END ==
LOC: M LAB REF 16:54
DX: R19.7 Diarrhea, unspecified (principal); E78.4 Other hyperlipidemia; E06.9 Thyroiditis, unspecified; I10 Essential (primary) hypertension
CPT/HCPCS: 84443

== ENCOUNTER → 2018-03-24 | Outpatient (REF) | payer MEDICARE ==
[~2018-03-24] MED LIST changes: -AMLO5TAB2 PO; +AMLO5TAB6 PO; -ASPI81TA4 PO; +ASPI81TA52 PO; -BENA40TA2 PO; +BENA40TA7 PO; +COUM1TAB17 PO; +COUM2.5T17 PO; -DICL100T PO; +DICL100T3 PO; +METO1TAB32 PO; -METO25TA74 PO; +MS C15TA8 PO; +OXYC-141 PO; +PERC5TAB12 PO; +TRAM50TA2 PO
[2018-03-24 16:41] LABS: BASO # 0.1 10^3/uL (0.0-0.2); BASO % 1.4 % (0.0-1.0); EOS # 0.2 10^3/uL (0.0-0.50); EOS % 5.1 % (0.0-3.0); HEMATOCRIT 38.8 % (36.0-47.0); HEMOGLOBIN 12.6 g/dl (12.0-15.5); LYMPH # 1.5 10^3/uL (1.5-4.5); LYMPH % 35.8 % (24.0-44.0); MEAN CORPUSCULAR HEMOGLOBIN 29.9 pg (27.0-33.0); MEAN CORPUSCULAR HGB CONC 32.5 g/dl (32.0-36.5); MEAN CORPUSCULAR VOLUME 91.9 fl (80.0-96.0); MONO # 0.4 10^3/uL (0.0-0.8); MONO % 10.2 % (0.0-5.0); NEUTROPHILS % 47.3 % (36.0-66.0); PLATELET COUNT, AUTOMATED 245 10^3/uL (150-450); RED BLOOD COUNT 4.22 10^6/uL (4.00-5.40); WHITE BLOOD COUNT 4.3 10^3/uL (4.0-10.0)
[2018-03-24 17:09] LABS: BLOOD UREA NITROGEN 16 MG/DL (7-18); CALCIUM LEVEL 8.3 MG/DL (8.8-10.2); CARBON DIOXIDE LEVEL 27 MEQ/L (21-32); CHLORIDE LEVEL 108 MEQ/L (98-107); CHOLESTEROL LEVEL 149 MG/DL (<200); CHOLESTEROL RISK RATIO 3.311 (<5); CREATININE FOR GFR 0.79 MG/DL (0.55-1.30); GLOMERULAR FILTRATION RATE > 60.0 (>39); GLUCOSE, FASTING 102 MG/DL (70-100); HDL CHOLESTEROL 45 MG/DL (>40); LDL CHOLESTEROL 83 MG/DL (<100); NON-HDL-C 104 MG/DL; POTASSIUM SERUM 4.6 MEQ/L (3.5-5.1); SODIUM LEVEL 140 MEQ/L (136-145); TRIGLYCERIDES LEVEL 106 MG/DL (<150)
== END ==
LOC: M LAB REF 16:17
PROVIDERS: ATTEND Family Medicine
DX: M19.90 Unspecified osteoarthritis, unspecified site (principal); E78.49 Other hyperlipidemia; Z00.00 Encounter for general adult medical examination without abnormal findings; I10 Essential (primary) hypertension

== ENCOUNTER 2018-07-19 09:12 | Day surgery (SDC) | payer MEDICARE ==
[~2018-07-19] VITALS: Ht 167.6 cm; Wt 108.9 kg
[~2018-07-19 09:12] MED LIST changes: +ACETAMINOPHEN 325 MG TAB PO PRN; +ASPI81CH33 PO; +BALANCED SALT IRRIGATION SOLUTION 500ML BAG (FOR OR EYE MACHINE) As Ordered ONE; +CEFUROXIME 1MG/0.1ML INTRACAMERAL INJ As Ordered ONE; +CYCLOPENTOLATE 2% OPHTH SOLN 2ML BTL OD ONE; -DICL100T3 PO; +DICL100T89 PO; +HEALON DUET PRO(HEALON 10MG/ML 0.55ML & HEALON ENDOCOAT 30MG/ML 0.85ML) As Ordered ONE; +LIDOCAINE 1% SDV 5 ML VIAL As Ordered ONE; +LIDOCAINE 3.5 % 1ML OPHTH TOPICAL GEL OU ONE; +LIPI20TA PO; +MIDAZOLAM INJ 2 MG/2 ML VIAL (J2250) As Ordered ONE; +OFLOXACIN 0.3 % (OCUFLOX) OPTH SOL 5ML OD ONE; +PHENYLEPHRINE 2.5% OPHTH SOL 2ML OD ONE; +PHENYLEPHRINE HCL 10 % OPHTH. SOL 5ML OD PRN; +POVIDONE-IODINE 5% OPHTH PREP SOL 30ML As Ordered ONE; +PROPARACAINE 0.5% OPHTH SOL 15ML OD PRN; +TROPICAMIDE 1% OPHTH SOLN 2ML OD ONE; +fentaNYL 100 MCG/2 ML INJECTION (J3010) As Ordered ONE
[2018-07-19 10:32] VITALS: BP 145/73
--- NOTE | 2018-07-19 10:37 | RO ---
DATE OF OPERATION: 07/19/2018 PREOPERATIVE DIAGNOSIS: Age-related nuclear cataract right eye. POSTOPERATIVE DIAGNOSIS: Age-related nuclear cataract right eye. PROCEDURE PERFORMED: Femtosecond cataract extraction with posterior chamber intraocular lens implantation and Optiwave Refractive Analysis (ORA). Lens used was a ZKB 00 21.5 diopter. SURGEON: Alisa Padron MD SHRIMP PICKER: ANESTHESIA: Topical with sedation. DESCRIPTION OF PROCEDURE: Patient was prepped and draped in usual fashion. A lid speculum was placed between the lids. The eye was fixated. A stab incision was made into the anterior chamber. 1% nonpreserved lidocaine was instilled. Then viscoelastic was instilled. The main incision was then opened with the incision grails web application developer, and the anterior capsulorrhexis was removed, was performed by the laser. The lens was then rocked to remove any gas from behind it, and then it was freely movable in the capsular bag. The phacoemulsification unit was used to groove the nucleus in two meridians. The nucleus was cracked into four quadrants. Each quadrant was removed with the phacoemulsification unit. Any remaining cortex was removed with the irrigation and aspiration (I and A) unit. The capsular bag was refilled with viscoelastic, and then the intraocular pressure measured and found to be adequate for ORA. The ORA was lowered into place, focused on the apex of the cornea, and aligned to the patient. Readings were made, and an appropriate intraocular lens was chosen from the data generated by the ORA. The lens was then injected into the eye with its feather mixer and into the capsular bag. It was in great position. Any remaining viscoelastic was removed with the I and A unit. The wound was then hydrated, and balanced salt solution (BSS) and cefuroxime were instilled. Patient tolerated this procedure well and went to recovery room in stable condition.
[2018-07-19] MEDS ORDERED: AcetaZOLAMIDE 500 MG ER CAP PO ONE (11:15)
[2018-07-19] MEDS ORDERED: KETOROLAC 0.5% OPHTH SOLN OD ONE (11:15)
[2018-07-19] MEDS ORDERED: TRIMETHOBENZAMIDE 300 MG CAP PO PRN (11:15)
== END 2018-07-19 11:40 | disposition home or self-care (01) ==
LOC: M SDC 09:12
PROVIDERS: ATTEND Ophthalmology
DX: H25.11 Age-related nuclear cataract, right eye (principal); I10 Essential (primary) hypertension; E78.5 Hyperlipidemia, unspecified; K21.9 Gastro-esophageal reflux disease without esophagitis; F41.9 Anxiety disorder, unspecified; Z79.899 Other long term (current) drug therapy; Z88.8 Allergy status to other drugs, medicaments and biological substances
CPT/HCPCS: 66984; 92015; J2250; J3010; V2788

== ENCOUNTER 2018-07-26 09:03 | Day surgery (SDC) | payer MEDICARE ==
[~2018-07-26] VITALS: Ht 167.6 cm; Wt 108.3 kg
[~2018-07-26 09:03] MED LIST changes: -CYCLOPENTOLATE 2% OPHTH SOLN 2ML BTL OD ONE; +CYCLOPENTOLATE 2% OPHTH SOLN 2ML BTL OS ONE; -OFLOXACIN 0.3 % (OCUFLOX) OPTH SOL 5ML OD ONE; +OFLOXACIN 0.3 % (OCUFLOX) OPTH SOL 5ML OS ONE; -PHENYLEPHRINE 2.5% OPHTH SOL 2ML OD ONE; +PHENYLEPHRINE 2.5% OPHTH SOL 2ML OS ONE; -PHENYLEPHRINE HCL 10 % OPHTH. SOL 5ML OD PRN; +PHENYLEPHRINE HCL 10 % OPHTH. SOL 5ML OS PRN; -PROPARACAINE 0.5% OPHTH SOL 15ML OD PRN; +PROPARACAINE 0.5% OPHTH SOL 15ML OS PRN; -TROPICAMIDE 1% OPHTH SOLN 2ML OD ONE; +TROPICAMIDE 1% OPHTH SOLN 2ML OS ONE
--- NOTE | 2018-07-26 13:42 | RO ---
DATE OF PROCEDURE: 07/26/2018 PREOPERATIVE DIAGNOSIS: Age-related nuclear cataract, left eye. POSTOPERATIVE DIAGNOSIS: Age-related nuclear cataract, left eye. PROCEDURE PERFORMED: Femtosecond laser with cataract extraction with posterior chamber intraocular lens implantation and Optiwave Refractive Analysis (ORA). Lens used was a ZLB 00 21.5 diopter. SURGEON: Alisa Padron MD PIERCING ARTIST: ANESTHESIA: Topical with sedation. DESCRIPTION OF PROCEDURE: Patient was prepped and draped in usual fashion. A lid speculum was placed between the lids. The eye was fixated. A stab incision was made into the anterior chamber. 1% nonpreserved lidocaine was instilled. Then viscoelastic was instilled. The main incision was then opened with the incision production laborer, and the anterior capsulorrhexis was removed, was performed by the laser. The lens was then rocked to remove any gas from behind it, and then it was freely movable in the capsular bag. The phacoemulsification unit was used to groove the nucleus in two meridians. The nucleus was cracked into four quadrants. Each quadrant was removed with the phacoemulsification unit. Any remaining cortex was removed with the irrigation and aspiration (I and A) unit. The capsular bag was refilled with viscoelastic, and then the intraocular pressure measured and found to be adequate for ORA. The ORA was lowered into place, focused on the apex of the cornea, and aligned to the patient. Readings were made, and an appropriate intraocular lens was chosen from the data generated by the ORA. The lens was then injected into the eye with its broomcorn scraper and into the capsular bag. It was in great position. Any remaining viscoelastic was removed with the I and A unit. The wound was then hydrated, and balanced salt solution (BSS) and cefuroxime were instilled. Patient tolerated this procedure well and went to recovery room in stable condition.
[2018-07-26] MEDS ORDERED: AcetaZOLAMIDE 500 MG ER CAP As Ordered ONE (13:52)
[2018-07-26] MEDS ORDERED: KETOROLAC 0.5% OPHTH SOLN OS ONE (14:00)
[2018-07-26] MEDS ORDERED: AcetaZOLAMIDE 500 MG ER CAP PO ONE (14:00)
[2018-07-26] MEDS ORDERED: TRIMETHOBENZAMIDE 300 MG CAP PO PRN (14:00)
[2018-07-26 14:05] VITALS: BP 143/81
== END 2018-07-26 14:25 | disposition home or self-care (01) ==
LOC: M SDC 09:03
PROVIDERS: ATTEND Ophthalmology
DX: H25.12 Age-related nuclear cataract, left eye (principal); I10 Essential (primary) hypertension; E78.5 Hyperlipidemia, unspecified; K21.9 Gastro-esophageal reflux disease without esophagitis; F41.9 Anxiety disorder, unspecified; Z79.82 Long term (current) use of aspirin; Z79.899 Other long term (current) drug therapy
CPT/HCPCS: 66984; 92015; J2250; J3010; V2788

== ENCOUNTER → 2019-03-26 | Outpatient (REF) | payer MEDICARE ==
[~2019-03-26] MED LIST changes: -ACETAMINOPHEN 325 MG TAB PO PRN; -BALANCED SALT IRRIGATION SOLUTION 500ML BAG (FOR OR EYE MACHINE) As Ordered ONE; +BENA40TA5 PO; -BENA40TA7 PO; -CEFUROXIME 1MG/0.1ML INTRACAMERAL INJ As Ordered ONE; -CYCLOPENTOLATE 2% OPHTH SOLN 2ML BTL OS ONE; -HEALON DUET PRO(HEALON 10MG/ML 0.55ML & HEALON ENDOCOAT 30MG/ML 0.85ML) As Ordered ONE; -LIDOCAINE 1% SDV 5 ML VIAL As Ordered ONE; -LIDOCAINE 3.5 % 1ML OPHTH TOPICAL GEL OU ONE; -MIDAZOLAM INJ 2 MG/2 ML VIAL (J2250) As Ordered ONE; -OFLOXACIN 0.3 % (OCUFLOX) OPTH SOL 5ML OS ONE; -PHENYLEPHRINE 2.5% OPHTH SOL 2ML OS ONE; -PHENYLEPHRINE HCL 10 % OPHTH. SOL 5ML OS PRN; -POVIDONE-IODINE 5% OPHTH PREP SOL 30ML As Ordered ONE; -PROPARACAINE 0.5% OPHTH SOL 15ML OS PRN; -TROPICAMIDE 1% OPHTH SOLN 2ML OS ONE; -fentaNYL 100 MCG/2 ML INJECTION (J3010) As Ordered ONE
[2019-03-26 16:39] LABS: BASO # 0.1 10^3/uL (0.0-0.2); EOS # 0.2 10^3/uL (0.0-0.5); EOS % 4.3 % (0.0-3.0); HEMATOCRIT 39.9 % (36.0-47.0); HEMOGLOBIN 12.3 g/dl (12.0-15.5); LYMPH # 1.4 10^3/uL (1.5-5.0); LYMPH % 28.7 % (24.0-44.0); MEAN CORPUSCULAR HEMOGLOBIN 28.9 pg (27.0-33.0); MEAN CORPUSCULAR HGB CONC 30.8 g/dl (32.0-36.5); MEAN CORPUSCULAR VOLUME 93.9 fl (80.0-96.0); MONO # 0.4 10^3/uL (0.0-0.8); MONO % 8.1 % (0.0-5.0); NEUTROPHILS # 2.9 10^3/uL (1.5-8.5); NEUTROPHILS % 57.7 % (36.0-66.0); PLATELET COUNT, AUTOMATED 264 10^3/uL (150-450); RED BLOOD COUNT 4.25 10^6/uL (4.00-5.40); WHITE BLOOD COUNT 4.9 10^3/uL (4.0-10.0)
[2019-03-26 17:14] LABS: ALBUMIN 3.6 GM/DL (3.2-5.2); ALT/SGPT 23 U/L (12-78); BILIRUBIN,TOTAL 0.6 MG/DL (0.2-1.0); BLOOD UREA NITROGEN 17 MG/DL (7-18); CALCIUM LEVEL 8.9 MG/DL (8.8-10.2); CARBON DIOXIDE LEVEL 28 MEQ/L (21-32); CHLORIDE LEVEL 105 MEQ/L (98-107); CHOLESTEROL LEVEL 238 MG/DL (<200); CHOLESTEROL RISK RATIO 5.666 (<5); CREATININE FOR GFR 0.74 MG/DL (0.55-1.30); GLOMERULAR FILTRATION RATE > 60.0 (>39); GLUCOSE, FASTING 91 MG/DL (70-100); HDL CHOLESTEROL 42 MG/DL (>40); LDL CHOLESTEROL 168 MG/DL (<100); NON-HDL-C 196 MG/DL; POTASSIUM SERUM 4.3 MEQ/L (3.5-5.1); SODIUM LEVEL 140 MEQ/L (136-145); TRIGLYCERIDES LEVEL 141 MG/DL (<150)
== END ==
LOC: M LAB REF 15:57
PROVIDERS: ATTEND Family Medicine
DX: Z00.00 Encounter for general adult medical examination without abnormal findings (principal); M25.569 Pain in unspecified knee; E78.49 Other hyperlipidemia; R63.4 Abnormal weight loss; I10 Essential (primary) hypertension

== ENCOUNTER → 2021-05-11 | Outpatient (CLI) | payer MEDICARE ==
[~2021-05-11] MED LIST changes: +AMLO1TAB24 PO; -AMLO5TAB6 PO; -BENA40TA5 PO; +BENA40TA84 PO
== END ==
LOC: M RAD 13:07
PROVIDERS: ATTEND Otolaryngology
DX: R13.10 Dysphagia, unspecified (principal)

== ENCOUNTER → 2021-11-19 | Outpatient (CLI) | payer MEDICARE | LOC: M RAD 14:28 | PROVIDERS: ATTEND Otolaryngology | DX: D44.0 Neoplasm of uncertain behavior of thyroid gland (principal) ==

== ENCOUNTER → 2021-12-14 | Outpatient (CLI) | payer MEDICARE ==
[~2021-12-14] MED LIST changes: +ACET650T61 PO; +CALC600T57 PO; +LEVO50TA5; +LIDOCAINE 1% MDV 20ML VIAL As Ordered ONE
[2021-12-14 09:15] VITALS: BP 184/87
== END ==
LOC: M IRPRO 08:09
PROVIDERS: ATTEND Otolaryngology
DX: D34 Benign neoplasm of thyroid gland (principal)

== ENCOUNTER → 2022-12-29 | Outpatient (CLI) | payer MEDICARE ==
[~2022-12-29] MED LIST changes: -LIDOCAINE 1% MDV 20ML VIAL As Ordered ONE
== END ==
LOC: M RAD 13:15
PROVIDERS: ATTEND Otolaryngology
DX: E04.1 Nontoxic single thyroid nodule (principal)